=== PATIENT | male | born 1975 | race Caucasian/White ===

== ENCOUNTER 2019-01-12 06:35 | Inpatient (IN) | payer BC ==
[2019-01-06 09:59] VITALS: BMI 28.3
--- NOTE | 2019-01-12 07:09 | HP ---
History & Physical Update - History History: No Change - Physical Physical: No Change - Assessment Assessment: No Change - Plan Plan: No Change (Initial H&P is coomplete and accurate. No new complaints or medications. Here today for elective L4/5 TLIF (pain is right sided))
[2019-01-12] MEDS ORDERED: GUM MASTIC/STORAX/MSAL/ALCOHOL 1 DRP DROPSBTL MC ONE (07:10)
[2019-01-12] MEDS ORDERED: THROMBIN (BOVINE) 5,000 UNIT VIAL TP ONE ×2 (07:10→09:31)
[2019-01-12] MEDS ORDERED: CEFAZOLIN 2 GM/D5W 2 GM/50 ML ML IVPB ONE ×2 (07:11→15:00)
[2019-01-12] MEDS ORDERED: oxyCODONE HCL 10 MG SUSTAINED ACTING TABLET PO STA (07:11)
[2019-01-12] MEDS ORDERED: SUCCINYLCHOLINE CHLORIDE 200 MG/10 ML VIAL ONE (07:45)
[2019-01-12] MEDS ORDERED: ROPIVACAINE HCL 0.5% 30ML VIAL ONE (07:51)
[2019-01-12] MEDS ORDERED: MIDAZOLAM HCL 2 MG/2 ML SINGLE DOSE VIAL ONE ×2 (07:51→08:34)
[2019-01-12] MEDS ORDERED: BUPIVACAINE LIPOSOME/PF (EXPAREL) 266 MG/20 ML VIAL ONE (08:08)
[2019-01-12] MEDS ORDERED: BUPIVACAINE HCL/PF (5 MG/ML) 30 ML VIAL IJ ONE (08:08)
[2019-01-12] MEDS ORDERED: BUPIVACAINE HCL/PF 0.5% (5MG/ML) 10 ML VIAL ONE (08:19)
[2019-01-12] MEDS ORDERED: DEXMEDETOMIDINE HCL 200 MCG/2 ML IVPB ONE (08:21)
[2019-01-12] MEDS ORDERED: ceFAZolin SODIUM 1 GM VIAL ONE (08:54)
[2019-01-12] MEDS ORDERED: GELATIN SPONGE,ABSORBABLE 1 GM PACKET TP ONE (09:32)
--- NOTE | 2019-01-12 11:00 | OP ---
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
[2019-01-12] MEDS ORDERED: ACETAMINOPHEN 1000 MG/100 ML VIAL (NON FORMULARY) IVPB PRN (11:03)
[2019-01-12] MEDS ORDERED: oxyCODONE HCL 5 MG TABLET PO PRN (11:03)
[2019-01-12] MEDS ORDERED: ONDANSETRON 4 MG/2 ML VIAL IVPUSH PRN (11:03)
--- NOTE | 2019-01-12 11:03 | SURG ---
Surgery Air Conditioning Unit Tester Note Air Conditioning Unit Tester: Vikram Flores PA-C Date of Service: 01/12/19 Diagnosis: L4/5 Spondylolithesis with radiculopathy Procedure: Transforaminal lumbar interbody fusion L4/5 / decompression / instrumentation / allograft implant / neuromonitoring I was present for the entirety of the operative procedure. For further detail, please refer to operative report. Visit type - Case Type Case Type: Scheduled - New patient This patient is new to me today: Yes Date on this admission: 01/12/19
[2019-01-12] MEDS ORDERED: LACTATED RINGERS SOLUTION 1,000 ML IV SCH (11:15)
[2019-01-12] MEDS ORDERED: ACETAMINOPHEN 325 MG TABLET (FP) PO SCH (11:15)
[2019-01-12] MEDS ORDERED: ACETAMINOPHEN INJECTION 100 ML IVPB ONE (11:52)
[2019-01-12] MEDS: oxyCODONE HCL 5 MG TABLET PO PRN ×2 (12:45→13:30)
--- NOTE | 2019-01-12 14:29 | OP ---
DATE OF OPERATION: 01/12/2019 PREOPERATIVE DIAGNOSES: 1. Spinal stenosis, L4-5. 2. Post laminectomy syndrome. POSTOPERATIVE DIAGNOSES: 1. Spinal stenosis, L4-5. 2. Post laminectomy syndrome. PROCEDURE PERFORMED: 1. Transforaminal lumbar interbody fusion, L4-5. 2. Placement instrumentation, L4-5. 3. Revision hemilaminectomy. 4. Placement of cage. SURGEON: Timothy Montano MD CORRESPONDENT: PAUL Cheng ESTIMATED BLOOD LOSS: 50 mL. INTRAVENOUS FLUIDS: Per Anesthesia. ANESTHESIA: Spinal/TLIP. COMPLICATIONS: None. DISPOSITION: Patient brought to the PACU in stable condition. INDICATION FOR SURGERY: Patient is a 43-year-old gentleman who has been suffering from pain from his back down his legs. X-rays and MRI were completed which showed that he had spinal stenosis at L4-5 secondary to a re-herniation. He had previously undergone successful laminectomy. He had gone through an exhaustive course of treatment which included medications, physical therapy, as well as injections. Unfortunately, his pain continued to persist despite all this. At this point, risks, benefits, and alternatives are discussed, and the patient consented to surgery. DESCRIPTION OF PROCEDURE: Patient was brought to the operating room by the Anesthesia staff. After appropriate patient identification was performed, spinal anesthesia was given. A TLIP block was also given. Patient was able to position prone onto the OR table with all areas of bony prominences well padded at this time. The C-arm was brought in. The L4-L5 pedicle was marked off. The back was prepped and draped in a sterile manner. At this point, timeout was completed, and incision was made from the top of L4 down to the bottom of L5. Dissection was carried down to the fascia. The fascia was split at this time. Under C-arm guidance, trocars were advanced to the L4-L5 pedicles. Over the trocar a wire was inserted over the wire a tap was performed, and screws were inserted, and the right-hand side retractor blades were set up to expose the L4-5 facet joint. The facet joint was removed. The disk was entered using a series pituitaries, Kerrisons, and curettes. Diskectomy was completed. The endplates were decorticated. Bone graft was laid down. A cage filled with bone graft was placed in. Tulip heads were placed over this. Christophe was measured and placed in capsule and compression was applied. On the left-hand side, a christophe was measured and placed in capsule and compression was applied. AP and lateral x-rays confirmed the instrumentation to be in good position. The fascia was closed with a No. 1 Vicryl suture. Subcutaneous tissue was closed with 2-0 Vicryl sutures. Skin was closed with 3-0 Monocryl suture. Dermabond was applied. Steri-Strips were applied. Sterile dressing was applied. Patient was placed supine on the OR bed and brought to the PACU in stable condition. TIMOTHY MONTANO M.D. [id number]
[2019-01-12 14:45] VITALS: TEMP 98.3
[2019-01-12] MEDS ORDERED: diazePAM 2 MG TABLET ONE ×2 (15:01→16:09)
[2019-01-12] MEDS ORDERED: CEFAZOLIN 1 GM/D5W 1 GM/50 ML BAG ONE (15:14)
[2019-01-12] MEDS ORDERED: KETOROLAC TROMETHAMINE 30 MG/1 ML VIAL ONE (16:09)
[2019-01-12 17:35] VITALS: BP 129/70; PULSE 56
[2019-01-12] MEDS ORDERED: diazePAM 2 MG TABLET PO SCH (22:00)
== END 2019-01-12 16:55 | disposition home or self-care (01) | DRG 460 ==
LOC: FM/S 06:35
PROVIDERS: ADMIT Orthopaedic Surgery Orthopaedic Surgery of the Spine; ATTEND Orthopaedic Surgery Orthopaedic Surgery of the Spine
PROC: 01NB0ZZ Release Lumbar Nerve, Open Approach (ICD-10-PCS; 2019-01-12)
PROC: 0ST20ZZ Resection of Lumbar Vertebral Disc, Open Approach (ICD-10-PCS; 2019-01-12)
PROC: 0QU007Z Supplement Lumbar Vertebra with Autologous Tissue Substitute, Open Approach (ICD-10-PCS; 2019-01-12)
PROC: 0QU007Z Supplement Lumbar Vertebra with Autologous Tissue Substitute, Open Approach (ICD-10-PCS; 2019-01-12)
PROC: 4A11X4G Monitoring of Peripheral Nervous Electrical Activity, Intraoperative, External Approach (ICD-10-PCS; 2019-01-12)
PROC: 0SG00AJ Fusion of Lumbar Vertebral Joint with Interbody Fusion Device, Posterior Approach, Anterior Column, Open Approach (ICD-10-PCS; principal; 2019-01-12 08:15)
DX: M48.061 Spinal stenosis, lumbar region without neurogenic claudication (principal); M43.16 Spondylolisthesis, lumbar region; M54.16 Radiculopathy, lumbar region
CPT/HCPCS: 72100-TC-FY; 94760; J0131